=== PATIENT | male | born 1970 | race Caucasian/White ===

== ENCOUNTER 2017-03-17 10:19 | Emergency (ER) | payer BC ==
[~2017-03-17] VITALS: Ht 182.9 cm; Wt 139.2 kg
[~2017-03-17 10:19] MED LIST: BYDUREON2 MG SC; CITALOPRAM40 MG PO; GLU500 PO; LOSARTAN POTAS100 MG PO
[2017-03-17 11:19] LABS: BASOPHIL % 0.3 % (0-2); PLATELET COUNT 178 x10^3mcL (130-400); RED CELL DISTRIBUTION WIDTH 12.8 % (11.5-14.5)
[2017-03-17 11:29] LABS: CALCIUM 8.7 mg/dL (8.5-10.1); CARBON DIOXIDE 23.7 mmol/L (21-32); CHLORIDE SERUM 107 mmol/L (98-107); CREATININE SERUM 0.8 mg/dL (0.7-1.3); GFR1 > 60 mL/min; GLUCOSE SERUM 191 mg/dL (74-106); SODIUM SERUM 145 mmol/L (136-145)
[2017-03-17 11:34] LABS: ALBUMIN 3.6 g/dL (3.4-5.0); ALKALINE PHOSPHATASE 87 U/L (46-116); ALT/SGPT 27 U/L (16-63); BILIRUBIN TOTAL 0.43 mg/dL (0.20-1.00); TOTAL PROTEIN, SERUM 7.1 g/dL (6.4-8.2)
[2017-03-17 11:40] LABS: microscopic required? NO
[2017-03-17 11:54] LABS: urine erythrocyte NEGATIVE (NEGATIVE)
[2017-03-17 12:30] VITALS: BP 126/77
[2017-03-17 12:30] LABS: AST/SGOT < 5.0 U/L (15-37)
== END 2017-03-17 13:00 | disposition home or self-care (01) ==
LOC: ED 10:19
PROVIDERS: Emergency Medicine
DX: R42 Dizziness and giddiness (principal); R06.02 Shortness of breath; R53.83 Other fatigue; E11.9 Type 2 diabetes mellitus without complications; I10 Essential (primary) hypertension; Z79.84 Long term (current) use of oral hypoglycemic drugs
CPT/HCPCS: 83880; J7030; Q0092

== ENCOUNTER 2018-05-20 11:08 | Emergency (ER) | payer BC ==
[~2018-05-20] VITALS: Ht 185.4 cm; Wt 131.5 kg
[2018-05-20 11:11] VITALS: Ht 185.4 cm; Wt 131.5 kg
[2018-05-20 12:39] VITALS: BP 137/72
== END 2018-05-20 12:39 | disposition home or self-care (01) ==
LOC: ED 11:08
DX: R07.89 Other chest pain (principal); I10 Essential (primary) hypertension; E11.9 Type 2 diabetes mellitus without complications; Z88.8 Allergy status to other drugs, medicaments and biological substances; Z79.1 Long term (current) use of non-steroidal anti-inflammatories (NSAID); Z79.899 Other long term (current) drug therapy
CPT/HCPCS: J1885

== ENCOUNTER 2019-12-08 01:12 | Emergency (ER) | payer BC ==
[~2019-12-08] VITALS: Ht 195.6 cm; Wt 132.4 kg
[2019-12-08 01:22] VITALS: Ht 195.6 cm; Wt 132.4 kg
[2019-12-08 02:33] VITALS: BP 155/88
== END 2019-12-08 02:30 | disposition home or self-care (01) ==
LOC: ED 01:12
DX: K21.9 Gastro-esophageal reflux disease without esophagitis (principal); I10 Essential (primary) hypertension; E11.9 Type 2 diabetes mellitus without complications; Z88.8 Allergy status to other drugs, medicaments and biological substances
CPT/HCPCS: Q0092